=== PATIENT | female | born 1970 | race Caucasian/White ===

== ENCOUNTER 2016-11-16 08:48 | Day surgery (SDC) | payer BC ==
[2016-11-09 18:54] VITALS: BMI 21.7
[2016-11-16] MEDS ORDERED: PROPOFOL 20 ML ONE (10:04)
[2016-11-16] MEDS ORDERED: MIDAZOLAM HCL 2 MG/2 ML SINGLE DOSE VIAL ONE ×3 (10:04)
[2016-11-16] MEDS ORDERED: ROCURONIUM BROMIDE 50 MG/5 ML VIAL ONE ×2 (10:04→11:14)
[2016-11-16] MEDS ORDERED: LIDOCAINE HCL/PF 2% SDV 5ML VIAL ONE (10:05)
[2016-11-16] MEDS ORDERED: ceFAZolin SODIUM 1 GM VIAL ONE ×2 (10:35)
[2016-11-16] MEDS ORDERED: ePHEDrine SULFATE 50 MG/1 ML AMPULE ONE (11:04)
[2016-11-16] MEDS ORDERED: DEXAMETHASONE SOD PHOSPHATE 4 MG/1 ML VIAL ONE (11:16)
[2016-11-16] MEDS ORDERED: ONDANSETRON 4 MG/2 ML VIAL ONE ×2 (11:16→14:29)
[2016-11-16] MEDS ORDERED: BUPIVACAINE HCL/PF 2.5 MG/ML - 30 ML VIAL IJ ONE ×2 (11:42→12:12)
[2016-11-16] MEDS ORDERED: KETOROLAC TROMETHAMINE 60 MG/2 ML VIAL ONE (12:11)
[2016-11-16] MEDS ORDERED: LIDOCAINE 1%-EPI 1:100,000 30 ML MDV IJ ONE ×3 (12:12→12:23)
[2016-11-16] MEDS ORDERED: morphine CARPU-JECT 10 MG/1 ML DISP.SYRIN ONE (12:12)
[2016-11-16] MEDS ORDERED: BUPIVACAINE HCL/EPINEPHRINE/PF 30 ML VIAL IJ ONE (12:58)
[2016-11-16] MEDS ORDERED: ACETAMINOPHEN INJECTION 100 ML IVPB ONE (14:15)
[2016-11-16] MEDS ORDERED: GLYCOPYRROLATE 0.2 MG/1 ML VIAL ONE (14:32)
[2016-11-16] MEDS ORDERED: NEOSTIGMINE METHYLSULFATE 0.5 MG/ML - 10 ML MDV ONE (14:32)
[2016-11-16] MEDS ORDERED: ACETAMINOPHEN 325 MG TABLET (FP) PO PRN ×2 (15:03→15:05)
[2016-11-16] MEDS ORDERED: ONDANSETRON 4 MG/2 ML VIAL IVPB PRN (15:03)
[2016-11-16] MEDS ORDERED: OXYCODONE/APAP 5/325MG COMBO TABLET PO PRN ×2 (15:05)
[2016-11-16] MEDS ORDERED: HYDROmorphone HCL CARPU-JECT 1 MG/1 ML DISP.SYRIN IVPB PRN (15:05)
[2016-11-16] MEDS ORDERED: diazePAM 5 MG TABLET PO PRN (15:05)
[2016-11-16] MEDS ORDERED: PROMETHAZINE HCL 25 MG/1 ML VIAL ONE (15:07)
[2016-11-16] MEDS ORDERED: PROMETHAZINE HCL 25 MG/1 ML VIAL IVPUSH ONE (15:10)
[2016-11-16] MEDS ORDERED: PROMETHAZINE HCL 25 MG/1 ML VIAL IVPUSH PRN (15:11)
[2016-11-16] MEDS ORDERED: ONDANSETRON 4 MG/2 ML VIAL IVPUSH PRN (15:11)
[2016-11-16] MEDS ORDERED: LACTATED RINGERS SOLUTION 1,000 ML IV SCH ×2 (15:15)
[2016-11-16] MEDS: DOCUSATE SODIUM 100 MG CAPSULE (FP) PO SCH (21:39)
[2016-11-16] MEDS: CEFAZOLIN 1 GM/D5W 50 ML IVPB SCH (21:39)
[2016-11-16] MEDS ORDERED: PROGESTERONE MICRONIZED 100 MG PO SCH ×2 (22:00)
[2016-11-16] MEDS ORDERED: [UNRECOGNIZED DRUG - OTHER] PO SCH ×2 (22:00)
[2016-11-17] MEDS: CEFAZOLIN 1 GM/D5W 50 ML IVPB SCH ×3 (03:00→09:07)
[2016-11-17] MEDS: DOCUSATE SODIUM 100 MG CAPSULE (FP) PO SCH (06:44)
[2016-11-17] MEDS ORDERED: OXYCODONE/APAP 5/325MG COMBO TABLET ONE (09:03)
[2016-11-17] MEDS ORDERED: ACETAMINOPHEN 325 MG TABLET (FP) PO PRN ×2 (09:31→09:32)
[2016-11-17] MEDS ORDERED: diazePAM 5 MG TABLET PO PRN (09:32)
[2016-11-17] MEDS ORDERED: ONDANSETRON 4 MG/2 ML VIAL IVPB PRN (09:32)
[2016-11-17] MEDS ORDERED: HYDROmorphone HCL CARPU-JECT 1 MG/1 ML DISP.SYRIN IVPB PRN (09:33)
[2016-11-17] MEDS ORDERED: OXYCODONE/APAP 5/325MG COMBO TABLET PO PRN ×2 (09:35)
[2016-11-17] MEDS ORDERED: CEFAZOLIN 1 GM/D5W 50 ML IVPB SCH (09:45)
[2016-11-17] MEDS ORDERED: SPIRONOLACTONE 25 MG TABLET (FP) PO SCH ×2 (10:00)
[2016-11-17] MEDS ORDERED: LISDEXAMFETAMINE DIMESYLATE 40 MG PO SCH ×2 (10:00)
[2016-11-17] MEDS ORDERED: PATIENT'S OWN MEDICATION (NON-FORMULARY) (Spironolactone [Aldactone] 100 MG) PO SCH (10:00)
[2016-11-17] MEDS ORDERED: BACITRACIN/POLYMYXIN B SULFATE 15 GM TUBE TP SCH ×2 (10:00)
[2016-11-17] MEDS ORDERED: buPROPion HCL 75 MG TABLET PO SCH ×2 (10:00)
[2016-11-17 10:06] VITALS: BP 110/58; PULSE 80; TEMP 98.1
[2016-11-17] MEDS ORDERED: DOCUSATE SODIUM 100 MG CAPSULE (FP) PO SCH (14:00)
--- NOTE | 2016-11-18 16:15 | OP ---
DATE OF OPERATION: 11/16/2016 SURGEON: Mariangel Fernandez M.D. FENCE ERECTOR SURGEON: Nicole Bush PREOPERATIVE DIAGNOSIS: 1. Cosmetic deformity of breasts with ptosis. 2. Abdominal deformity requiring surgery. 3. Excess labia. POSTOPERATIVE DIAGNOSIS: 1. Cosmetic deformity of breasts with ptosis. 2. Abdominal deformity requiring surgery. 3. Excess labia. OPERATIVE PROCEDURE: 1. Bilateral breast augmentation with silicone gel implants. 2. Abdominoplasty with repositioning of umbilicus. 3. Labioplasty with extension. OPERATIVE INDICATION: Patient is a young woman who complains of the above deformities. The risks and benefits of surgical versus nonsurgical alternatives as well as the material complications were described on multiple occasions preoperatively to the patient; she agreed to the planned procedure for each area of surgery. OPERATIVE PROCEDURE IN DETAIL: Patient was taken to the operating room and after induction of general anesthesia in supine position, both arms are extended and padded. Venodyne boots were placed. The patient was placed into the lithotomy position on the table. The previous discussion earlier in the week and in the holding area for outline of the procedures was carried out in a standing position preoperatively as well as a discussion about the labia. After placing the sterile drapes in the usual fashion for lithotomy position, attention was turned to the labioplasty. Bilateral asymmetric wedge labioplasty was planned. The left labia was larger in size and required a larger wedge resection. This was marked on the medial side of the labia for full thickness wedge excision in an asymmetric fashion. The right labia was also marked for a clitoral trevizo reduction with extension. After the markings were made, 1% local lidocaine anesthesia with 1:100,000 epinephrine was injected into the labia and clitoral trevizo. After allowing topical anesthesia and hemostasis for approximately 10 minutes, using the PEEK electrocautery, the incisions were made first on the left labia excising a wedge in the anterior and superior area to avoid the major blood flow and arteries. This was carried down through the mucosa and through the submucosa, excising a full thickness wedge of labia. The exact same procedure was carried out but asymmetrically on the opposite side according to the pattern. Also a large block of labia was removed on the right side. An extension was carried superiorly along the lateral gutter from the clitoral trevizo and a portion of the skin and mucosa was removed, extending up to the verge. After hemostasis was meticulously obtained throughout with the PEEK electrocautery, repair was carried out on the labia first in layers using 4-0 Biosyn suture on the deep layer of the submucosa and multiple sutures were placed in the wedge, closing the submucosa. This is carried out on both sides and on the clitoral trevizo extension. Then using 5-0 Vicryl sutures, multiple sutures were placed in vertical mattress fashion on both the left and right sides of the labia as well as the interrupted running sutures on the clitoral trevizo extension. All wounds were meticulously closed under optical magnification of 2.5 power, as was the entire procedure carried out with optical magnification. Good shape and contour was seen at the closure of all wounds. This was dressed with bacitracin and padding as well as a mesh panty. At this point, the patient was placed back into the supine position and carefully the Julien catheter, which had been placed during the prep and marking, was left in position and re-positioned. The patient was then re-prepped and re-draped over the breast and abdomen according to the markings and then after a new timeout and preparation, attention was turned to the breasts. Two 4-cm incisions were planned in the inframammary fold, and a standard subpectoral augmentation mammoplasty was carried out. An incision was made down through the skin and subcutaneous tissue, through the subcutaneous tissue down to the underlying pectoralis major muscle. Subpectoral dissection was then carried out superiorly from the 2nd rib, medially to the sternal and laterally to the anterior axillary line. This was carried down to the inframammary fold. At this point, after hemostasis and irrigation with triple antibiotic solution, a 240 mL SRM moderate shaped implant of smooth variety was placed into the pocket. The patient had decided 24 hours preoperatively that she did not want textured implants due to the recent knowledge of ALCL. Upon insertion of the implants, good shape and contour was seen in the sitting position. Good symmetry was seen, so both wounds were irritated, hemostasis again meticulously obtained, and closure was carried out with layers using 3-0 PDS suture in the deep fascia and deep dermis and a running 4-0 Biosyn on the skin. Attention was then turned to the abdominal area. The incision which was planned in the standing position was remarked and remeasured to confirm on the abdominal wall incorporating the area of previous lower abdominal incision and scar. The incision was made at this point with the scalpel number 10 blade down through the skin and subcutaneous tissue, down to the underlying area of Wendy fascia. Dissection was carried in the midline down to the anterior rectus fascia, which a large amount of scar was seen from previous surgery, and then laterally the Wendy area was protected and a small amount of material was left over the lymphatic area in each groin region. Dissection was carried up to the umbilicus which was circumscribed and dropped back with a number 10 scalpel and then the upper incision was made after confirmation that there was no significant tension on the abdominal wall. After removing the lower abdominal skin and fat, dissection was carried up in the midline to the xiphoid, undermining the tissues. Previous repair of the abdominal wall was visualized with Prolene sutures well healed and incorporated to the fascia. Hemostasis again meticulously obtained, two 15 Huey drains were brought out through the pubic region with trocars and then an advancement flap closure was carried out in the usual fashion. Using 2-0 Vicryl sutures, sutures were placed from the underneath of the anterior abdominal wall with tension reduction sutures in multiple areas over the abdomen, marching down from just above the umbilicus down to the lower incision. After the sutures were placed in the abdominal wall, the skin and subcutaneous tissue was closed with 2-0 Vicryl suture on Wendy fascia, 3-0 PDS in a deep dermal fashion, and 4-0 Biosyn in a subcuticular fashion. The umbilicus was brought out through its new anatomic position using the eyeglass technique and sutured using 3-0 PDS on the deep tissue and 5-0 plain catgut sutures on the skin. All wounds were dressed sterilely with Steri-Strips and on both breasts and abdomen. Soft dressings were placed over abdomen and breasts, and a binder was placed on the abdomen, and a Surgi-Bra on the chest. At this point, checking for any bleeding in the groin was carried out; no evidence of bleeding was seen. Patient was awakened, extubated, and transferred to her bed in the operating room in a semi-Naylor sitting position. She tolerated procedure well. MARIANGEL FERNANDEZ M.D. DEMETRIUS/[id number]
--- NOTE | 2016-11-23 11:19 | PATH ---
Surgical Pathology Report Patient Name: TARA ALANIS [facility]. Rec. #: [id number] /Age/Gender: 1970 (Age: 46) / F Account: [id number] Location: [facility] Taken: 11/16/2016 Received: 11/16/2016 Reported: 11/18/2016 Physicians: Mike Fernandez Specimen(s) Received ABDOMINAL TISSUE AND SKIN Clinical History Cosmetic Final Diagnosis ABDOMINAL TISSUE AND SKIN, ABDOMINOPLASTY: ADIPOSE TISSUE AND SKIN, DESCRIBED (GROSS EXAMINATION ONLY). Electronically Signed Xuan Del Real M.D. Gross Description Received in formalin labeled "abdominal tissue and skin," is a 255 g, 22.0 x 13.0 x 2.0 cm aggregate of 2 dsouza, triangular portions of skin with underlying soft tissue. The epidermal surfaces are unremarkable. Sectioning reveals yellow, lobulated adipose tissue. No lesions are identified. No sections are submitted, gross only. /11/17/2016 saudi11/17/2016
== END 2016-11-17 10:15 | disposition home or self-care (01) ==
LOC: FASU 08:48 → FM/S 16:41 → FASU 20:20
PROVIDERS: ATTEND Plastic Surgery
PROC: 0H0V0JZ Alteration of Bilateral Breast with Synthetic Substitute, Open Approach (ICD-10-PCS; principal; 2016-11-16 10:55)
PROC: 0J080ZZ Alteration of Abdomen Subcutaneous Tissue and Fascia, Open Approach (ICD-10-PCS; 2016-11-16 10:55)
PROC: 0UBMXZZ Excision of Vulva, External Approach (ICD-10-PCS; 2016-11-16 10:55)
DX: Z41.1 Encounter for cosmetic surgery (principal); N64.81 Ptosis of breast; M95.8 Other specified acquired deformities of musculoskeletal system; N90.69 Other specified hypertrophy of vulva
CPT/HCPCS: 84703; 88300-TC; 94760